=== PATIENT | male | born 1960 | race African-American/Black ===

== ENCOUNTER 2020-12-20 16:13 | Emergency (ER) | payer MEDICAID ==
[~2020-12-20] VITALS: Ht 177.8 cm; Wt 95.3 kg
[2020-12-20 16:27] VITALS: BP 177/90
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
--- NOTE | 2020-12-20 17:24 | Diagnostic Imaging Report ---
EXAM: CT Head Without Intravenous Contrast CLINICAL HISTORY: Trauma TECHNIQUE: Axial computed tomography images of the head/brain without intravenous contrast. CTDI is 53.4 mGy and DLP is 1098.9 mGy-cm. One or more of the following dose reduction techniques were used: automated exposure control, adjustment of the mA and/or kV according to patient size, use of iterative reconstruction technique. COMPARISON: No relevant prior studies available. FINDINGS: Brain: No intracranial hemorrhage, mass effect or midline shift. There is no abnormal extra axial fluid collection. No evidence of acute infarct. Minimal periventricular white matter hypodensities are most consistent with chronic micro-angiopathy. Ventricles: Unremarkable. No ventriculomegaly. Bones/joints: Unremarkable. No acute fracture. Soft tissues: Unremarkable. Sinuses: There is a 1.8 cm mucous retention cyst or polyp of the left maxillary sinus. The remaining visualized paranasal sinuses are clear. Mastoid air cells: Unremarkable as visualized. No mastoid effusion. IMPRESSION: No acute findings in the head/brain.
[2020-12-20] MEDS ORDERED: Ketorolac 30mg Inj IM ONE (17:30)
[2020-12-20] MEDS ORDERED: Methocarbamol 500mg tab ORAL ONE (17:30)
--- NOTE | 2020-12-20 17:50 | Diagnostic Imaging Report ---
EXAM: CT Cervical Spine Without Intravenous Contrast CLINICAL HISTORY: Trauma TECHNIQUE: Axial computed tomography images of the cervical spine without intravenous contrast. CTDI is 20.2 mGy and DLP is 556.7 mGy-cm. One or more of the following dose reduction techniques were used: automated exposure control, adjustment of the mA and/or kV according to patient size, use of iterative reconstruction technique. COMPARISON: No relevant prior studies available. FINDINGS: Vertebrae: No fracture or malalignment. Discs/spinal canal/neural foramina: There are degenerative changes of the spine. No spinal canal stenosis. Soft tissues: Unremarkable. IMPRESSION: No acute findings in the cervical spine.
--- NOTE | 2020-12-20 17:55 | Diagnostic Imaging Report ---
EXAM: XR Left Knee, 3 Views CLINICAL HISTORY: Pain TECHNIQUE: Three views of the left knee. COMPARISON: No relevant prior studies available. FINDINGS: Bones/joints: Moderate knee joint effusion. No fracture or dislocation. Soft tissues: Unremarkable. IMPRESSION: Moderate knee joint effusion. No fracture or dislocation.
--- NOTE | 2020-12-20 18:02 | Diagnostic Imaging Report ---
EXAM: CT Thoracic Spine Without Intravenous Contrast CLINICAL HISTORY: Trauma TECHNIQUE: Axial computed tomography images of the thoracic spine without intravenous contrast. CTDI is 12.6 mGy and DLP is 527.7 mGy-cm. One or more of the following dose reduction techniques were used: automated exposure control, adjustment of the mA and/or kV according to patient size, use of iterative reconstruction technique. COMPARISON: No relevant prior studies available. FINDINGS: Vertebrae: No fracture or malalignment. Discs/spinal canal/neural foramina: There are mild degenerative changes of the spine. No spinal canal stenosis. Soft tissues: Unremarkable. IMPRESSION: No acute findings in the thoracic spine.
--- NOTE | 2020-12-20 18:09 | Diagnostic Imaging Report ---
EXAM: CT Lumbar Spine Without Intravenous Contrast CLINICAL HISTORY: Trauma TECHNIQUE: Axial computed tomography images of the lumbar spine without intravenous contrast. CTDI is 24.7 mGy and DLP is 992.9 mGy-cm. One or more of the following dose reduction techniques were used: automated exposure control, adjustment of the mA and/or kV according to patient size, use of iterative reconstruction technique. COMPARISON: No relevant prior studies available. FINDINGS: Vertebrae: No fracture or malalignment. Discs/spinal canal/neural foramina: There mild degenerative changes of the spine. No spinal canal stenosis. Soft tissues: Unremarkable. IMPRESSION: No acute findings in the lumbar spine.
[2020-12-20] MEDS ORDERED: IBUPROFEN600 M1 ORAL (18:12)
[2020-12-20] MEDS ORDERED: ROBAXIN-750750 MG PO (18:12)
--- NOTE | 2020-12-20 18:38 | NUR ---
Patient cleared for discharge. Knee immobilizer placed to left knee Rx for Robaxin and Ibuprofen given.
== END 2020-12-20 18:17 | disposition home or self-care (01) ==
LOC: EMR 17:15
DX: M25.462 Effusion, left knee (principal); V43.62XA Car passenger injured in collision with other type car in traffic accident, initial encounter; Y92.410 Unspecified street and highway as the place of occurrence of the external cause
CPT/HCPCS: 70450; 72125; 72128; 72131; 73562; 96372; J1885; Z7502; 99284